=== PATIENT | male | born 1990 | race Caucasian/White ===

== ENCOUNTER 2016-11-17 16:39 | Emergency (ER) | payer OTHER ==
[~2016-11-17] VITALS: Ht 182.9 cm; Wt 79.4 kg
[2016-11-17 16:54] VITALS: BP 124/68
[2016-11-17] MEDS ORDERED: ONDANSETRON 4 MG TAB.RAPDIS ONE (17:04)
[2016-11-17] MEDS ORDERED: ONDANSETRON 4 MG TAB.RAPDIS SL ONE (17:30)
== END 2016-11-17 17:15 | disposition home or self-care (01) ==
LOC: ER 16:42
DX: F17.210 Nicotine dependence, cigarettes, uncomplicated (principal)
CPT/HCPCS: A4606; Q0162; Z7610